=== PATIENT | female | born 1955 | race Caucasian/White ===

== ENCOUNTER → 2017-02-14 | Day surgery (SDC) | payer OTHER, MEDICARE ==
[~2017-02-14] VITALS: Ht 157.5 cm; Wt 93.0 kg
[~2017-02-14] MED LIST: ACETAMINOPHEN; CALCIUM CARB; DURAGESIC1 EAC1 TOP; ESCITALOPRAM OX10 MG PO; FENOFIBRATE160 M1 PO; FERROUS SULFAT325 M3 PO; FOLIC ACID1 M1 PO; GABAPENTIN600 M1 PO; LASIX20 M1 PO; METHADONE HCL5 MG PO; METOCLOPRAMIDE PO; MIRALAX17 G1 PO; MOVANTIK25 M1 PO; MYRBETRIQ50 M1 PO; OMEPRAZOLE20 M2 PO; OXYCODONE HCL5 M1 PO; PLAVIX75 M1 PO; SENNA8.6 M3 PO; SEREVENT DISKU50 MCG; SIMVASTATIN40 M1 PO; SPIRIVA18 MCG INH; TRAZODONE HCL50 M1 PO; VITAMIN B-121000 MC3 PO
--- NOTE | 2017-02-14 09:19 | Procedure ---
Minor Surgical Procedure Note Date of Procedure: 02/14/17 Procedure Note: Procedure: Replace intrathecal pump reservoir Surgeon: Yoseph Preoperative diagnosis: intrathecal pump reservoir Postop diagnosis: intrathecal pump reservoir EBL: Minimal Anesthesia: Conscious sedation After consent the patient was brought to the operating room and placed in the supine position. The abdomen was prepped and draped in the usual fashion. The skin over the incision site was infiltrated with 1% lidocaine. A transverse incision was made over the left side of the abdomen and the location of the intrathecal pump reservoir pocket. With sharp and blunt dissection intrathecal pump was excised from the abdominal pocket and disconnected from the indwelling intrathecal catheter. The catheter was trimmed and a new sutureless connector was placed. Free flow of CSF was observed. The new intrathecal pump reservoir, a [employer] 20 cc reservoir, was brought to the table and emptied of sterile water. It was then filled with 10 cc of normal saline and programmed to run at a minimal rate. No intrathecal pump was then connected directly to the catheter using the sutureless connector. The new pump was placed within the pocket which was then closed with 301 4-0 Vicryl in a multilayer closure. Skin miles were used to close the skin. Dressings were applied. Patient brought to the recovery area without incident.
== END ==
LOC: STS 04:19
DX: T85.698A Other mechanical complication of other specified internal prosthetic devices, implants and grafts, initial encounter (principal); M96.1 Postlaminectomy syndrome, not elsewhere classified; M54.17 Radiculopathy, lumbosacral region; Z86.73 Personal history of transient ischemic attack (TIA), and cerebral infarction without residual deficits; J44.9 Chronic obstructive pulmonary disease, unspecified; Z99.81 Dependence on supplemental oxygen; Z87.891 Personal history of nicotine dependence
CPT/HCPCS: C1755; C1772; J0690; J2250

== ENCOUNTER → 2018-03-01 | Day surgery (SDC) | payer OTHER, MEDICARE ==
[~2018-03-01] VITALS: Ht 162.6 cm; Wt 97.7 kg
[~2018-03-01] MED LIST changes: +CETIRIZINE HCL5 M1 PO; +FLOMAX0.4 M1 PO; +FLOVENT HFA12 G1 INH; +INCRUSE ELLI62.5 MCG; +IPRAT-ALBUT 0.5-3 ML; +MOVANTIK25 M1; +PROBIOTIC250 MG
--- NOTE | 2018-03-21 17:12 | Operative Report ---
Operative/Inv Procedure Report Surgery Date: 03/01/18 Name of Procedure: Revision of spinal cord stimulator Pre-Operative Diagnosis: Mechanical complication of spinal cord stimulator Post-Operative Diagnosis: Mechanical complication of spinal cord stimulator Estimated Blood Loss: less than 50ml Surgeon/Shop Tech: Cb Hameed MD Anesthesia: general endotracheal tube Operative/Procedure Note Note: After patient was consented she was brought to the operating room where general anesthesia was induced uneventfully. She was turned to a right lateral decubitus position all pressure points padded. The left side of the buttocks and left side of the abdomen and flank were prepped and draped in the usual fashion. All surgical sites were infiltrated with 1% lidocaine prior to incision. A transverse incision was made over the left buttock region where her protruded and irritated IPG pocket was located. There was extensive scarring in this area and it took considerable dissection to get down to the IPG. The IPG was removed from the pocket and disconnected from the implanted neuro stimulation leads. This area was cleaned up of scar tissue. A small stab incision was made in the left flank region. The leads were tunneled to that flank incision. At this point the buttocks incision was closed with 4-0 Vicryl and skin miles. A transverse incision was then made left side of the abdomen and a pocket undermined the subcutaneous tissue for the IPG. Extensions were then tunneled from the IPG pocket to the flank incision and connected to the tunneled leads. The IPG was brought back to the table and connected to the leads in place within the new IPG pocket. Extension headers were buried the small flank incision or subcutaneous pocket was undermined. The 2 incisions were then closed with 4-0 Vicryl followed by skin miles. Dressings were applied to all the wounds she was then taken to the recovery area after emerging from general anesthesia.
== END ==
LOC: STS 02-26 07:00
DX: T85.193A Other mechanical complication of implanted electronic neurostimulator, generator, initial encounter (principal); M54.5 Low back pain; M48.061 Spinal stenosis, lumbar region without neurogenic claudication; M51.86 Other intervertebral disc disorders, lumbar region; Y83.8 Other surgical procedures as the cause of abnormal reaction of the patient, or of later complication, without mention of misadventure at the time of the procedure; M19.90 Unspecified osteoarthritis, unspecified site; J44.9 Chronic obstructive pulmonary disease, unspecified; E11.40 Type 2 diabetes mellitus with diabetic neuropathy, unspecified; Z79.84 Long term (current) use of oral hypoglycemic drugs; I50.9 Heart failure, unspecified; I10 Essential (primary) hypertension
CPT/HCPCS: J0131; J0690; J2250